=== PATIENT | female | born 1950 | race Caucasian/White ===

== ENCOUNTER → 2018-05-22 | Outpatient (CLI) | payer MEDICARE ==
--- NOTE | 2018-05-22 13:17 | RADIOLOGY IMAGING REPORT ---
FACILITY: [facility] PATIENT NAME: Meggan Royal : 1950 MR: [id number] V: [id number] EXAM DATE: ORDERING PHYSICIAN: CARYN MANN TECHNOLOGIST: Location: [facility] Patient: Meggan Royal : 1950 Visit/Account:[id number] Date of Sevice: 05/22/2018 2 VIEWS CHEST INDICATION: Lymphadenopathy. COMPARISON: November 20, 2010. FINDINGS: Heart size within normal limits. There is no focal infiltrate or lobar consolidation. There is no pneumothorax or pleural effusion. IMPRESSION: 1. No acute cardiopulmonary process. Report Dictated By: Wing Lake MD at 05/22/2018 1:12 PM Report E-Signed By: Wing Lake MD at 05/22/2018 1:13 PM WSN:[id number]
--- NOTE | 2018-05-22 14:50 | RADIOLOGY IMAGING REPORT ---
FACILITY: [facility] PATIENT NAME: Meggan Royal : 1950 MR: [id number] V: [id number] EXAM DATE: ORDERING PHYSICIAN: CARYN MANN TECHNOLOGIST: Location: [facility] Patient: Meggan Royal : 1950 Visit/Account:[id number] Date of Sevice: 05/22/2018 SOFT TISSUE NON-SPECIFIC INDICATION: Lump COMPARISON: None available FINDINGS: Sonographic evaluation of the right antecubital region and left arm shows evidence of sub cutaneous lipomas with the one on the right measuring 2.2 x 0.5 cm and the one on the left measuring 1.8 x 0.4 cm. No focal fluid collection identified. No focal abnormality of the adjacent musculature . IMPRESSION: Findings consistent with subcutaneous lipomas at the areas of concern within the right an tecubital fossa and left arm. Report Dictated By: Austin Kam MD at 05/22/2018 2:45 PM Report E-Signed By: Austin Kam MD at 05/22/2018 2:47 PM WSN:[id number]
== END ==
LOC: US 03:09
PROVIDERS: ATTEND Nurse Practitioner Family
DX: D17.22 Benign lipomatous neoplasm of skin and subcutaneous tissue of left arm (principal); R59.0 Localized enlarged lymph nodes; R59.1 Generalized enlarged lymph nodes
CPT/HCPCS: 71046; 76999